=== PATIENT | male | born 1990 | race Caucasian/White ===

== ENCOUNTER 2020-01-21 17:03 | Emergency (ER) | payer OTHER ==
[~2020-01-21] VITALS: Ht 182.9 cm; Wt 81.7 kg
[2020-01-21] MEDS ORDERED: KEFLEX500 M1 PO (18:17)
[2020-01-21] MEDS ORDERED: CENTANY30 GM TOP (18:17)
[2020-01-21 18:52] VITALS: BP 145/76
== END 2020-01-21 18:53 | disposition home or self-care (01) ==
LOC: M.ERS 17:03
DX: S30.811A Abrasion of abdominal wall, initial encounter (principal); Z90.89 Acquired absence of other organs; Z88.0 Allergy status to penicillin; V89.2XXA Person injured in unspecified motor-vehicle accident, traffic, initial encounter; Y93.89 Activity, other specified; Y92.89 Other specified places as the place of occurrence of the external cause; Y99.8 Other external cause status